=== PATIENT | female | born 1990 | race Caucasian/White ===

== ENCOUNTER 2019-10-13 23:17 | Emergency (ER) | payer MEDICAID, SELFPAY ==
[2019-10-13 23:24] VITALS: BP 112/76; PULSE 79; RESP 18; TEMP 36.8; O2SAT 95; BMI 37.5
--- NOTE | 2019-10-13 23:34 | W.ED.DENTAL ---
HPI - Dental/Oral General: Chief complaint: Dental/Oral Stated complaint: dental pain Time Seen by Provider: 10/13/19 23:31 History of Present Illness: HPI Narrative: Patient is a 29-year-old female comes to the ED with dental pain. Patient says dental pain started approximately 2 to 3 days ago. She is also complaining of having some swelling on the right side of her face as well. Dental pain is the back right maxillary jaw. Location of dental pain is around tooth #2 and 3. Denies any fevers, chills, nausea/vomiting. Patient says she has a dentist that she can see to treat dental pain, but needs to be on an antibiotic first. Denies any shortness of breath or trouble breathing. Associated symptoms: Denies fever(s) or odynophagia Review of Systems Const: Denies: fever(s), chills or fatigue Eyes: Denies: change in vision or eye discomfort ENMT: Reports: dental pain; Denies: throat pain, odynophagia, nasal discharge or nasal congestion Card: Denies: chest pain, palpitations, edema, swelling of feet/ankles, dyspnea on exertion or orthopnea Resp: Denies: dyspnea, productive cough or non-productive cough GI: Denies: abdominal pain, nausea, vomiting, diarrhea, constipation or hematochezia : Denies: flank pain, dysuria or hematuria Musc: Denies: neck pain, back pain or extremity swelling Skin/Breast: Denies: rash or new lesions Neuro: Denies: headache(s), numbness in extremities or weakness in extremities PFS ED PFSH: Social History Smoking and tobacco status: current every day smoker Physical Exam Const: COMMON NORMALS: no acute distress, patient oriented x3 and alert GENERAL APPEARANCE: cooperative HENMT: COMMON NORMALS: normocephalic HEAD & SCALP: normocephalic FACE & SINUS: normal facial exam (No visible facial swelling seen on right side of face.) MOUTH: Normal oral and palatal mucosa present TEETH & GINGIVA: Yes caries (Extensive dental caries, but no severe head around teeth #2 and 3.) and Yes gingiva abnormal (Gingival tenderness and erythema around teeth #2 and 3.) tender THROAT: posterior oropharynx normal and uvula midline Eye: COMMON NORMALS: Equal, round and reactive pupils present PUPIL: Yes Equal, round and reactive pupils present Neck/C-Spine: COMMON NORMALS: supple GENERAL: Yes normal visual inspection Resp: COMMON NORMALS: normal respiratory effort, No retractions, No use of accessory muscles and clear to auscultation bilaterally AUSCULTATION: clear to auscultation bilaterally Cardio: COMMON NORMALS: regular rate, regular rhythm, S1 normal heart sound present, S2 normal heart sound present, No gallops present (Cardio), No clicks present (Cardio), No murmurs present (Cardio) and Peripheral pulses 2+ throughout RATE: regular rate RHYTHM: regular rhythm HEART SOUNDS: S1 normal heart sound present and S2 normal heart sound present PERIPHERAL PULSES: Peripheral pulses 2+ throughout GI: COMMON NORMALS: Normal to inspection, nondistended, normoactive bowel sounds present, Soft to palpation, non-tender and no masses PALPATION: Yes Soft to palpation : COMMON NORMALS: Yes no CVA tenderness BLADDER/KIDNEY EXAM: Yes no CVA tenderness Back/Pelvis: COMMON NORMALS: no CVA tenderness Extremity: COMMON NORMALS: normal to inspection and no pedal edema Neuro: COMMON NORMALS: patient oriented x3 and moves all extremities SENSORIUM/ORIENTATION: Yes alert Skin: COMMON NORMALS: no rashes or lesions noted GENERAL SKIN EXAM: no rashes or lesions noted and dry skin Course Vital Signs: Vital signs: Vital Signs Temperature 98.2 F 10/13/19 23:24 Pulse Rate 80 10/14/19 00:51 Respiratory Rate 18 10/14/19 00:51 Blood Pressure 110/76 10/14/19 00:51 Pulse Oximetry 96 10/14/19 00:51 Discharge Plan Discharge Patient Disposition: Home, Self-Care Clinical Impression: Pain due to dental caries Condition: Stable Prescriptions: New clindamycin HCl 150 mg capsule 300 mg PO QID 7 Days Qty: 56 RF: 0 Discharge Orders: Discharge Order (Routine); Ordered 10/14/19 Ordered By: Zeeshan Cox Discharge Diet: Regular Discharge Activity: Resume usual activity Patient Instructions: Dental Caries (ED) Activity Restrictions/Additional Instructions: Contact your dentist and set up an appointment for evaluation in the next 7 to 10 days. Take full course of antibiotics as prescribed. Take ibuprofen or Tylenol per bottle instructions for pain and or fever. Drink plenty of fluids and stay hydrated. Discharge Date/Time: 10/14/19 00:52 Coding Level of Care Code ED Medical Health Researcher for Chg Fwd Exam Comprehensive
[2019-10-14] MEDS: clindamycin 150 mg Capsule 300 MG PO (00:40)
[2019-10-14] MEDS: HYDROcodone-acetaminophen 7.5-325 mg Tablet 1 TAB PO (00:40)
[2019-10-14 00:51] VITALS: BP 110/76; PULSE 80; RESP 18; O2SAT 96
== END 2019-10-14 00:52 | disposition home or self-care (01) ==
PROVIDERS: Emergency Provider Physician Assistant
DX: K02.9 Dental caries, unspecified (principal); F17.210 Nicotine dependence, cigarettes, uncomplicated
CPT/HCPCS: 12345; 99281; 99283

== ENCOUNTER 2019-10-28 22:53 | Emergency (ER) | payer MEDICAID, SELFPAY ==
--- NOTE | 2019-10-28 22:55 | ECG_ITS ---
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 Measurements Intervals Vevay Rate: 66 P: 44 MA: 243 QRS: 52 QRSD: 102 T: 35 QT: 380 QTc: 399 Interpretive Statements SINUS RHYTHM WITH FIRST DEGREE AV BLOCK No previous ECG available for comparison Electronically Signed On 10-29-2019 7:25:57 CDT by Jose Edmonds M.D. [id number] f
--- NOTE | 2019-10-28 22:55 | XR_ITS ---
WS: [id number] PORTABLE CHEST HISTORY: cp COMPARISON: None available. Lungs are clear and well expanded. No pleural effusion or pneumothorax. Cardiac size: Normal. Mediastinum/Aorta: Normal mediastinum. Mild RIGHT convex curvature drastic spine. XR/XR chest 1V portable [id number] IMPRESSION: Unremarkable portable chest.
[2019-10-28 23:16] VITALS: BP 109/67; PULSE 88; RESP 18; TEMP 36.7; O2SAT 96; BMI 37.5
[2019-10-28 23:18] LABS: Basophils # 0.1 10^3/uL (0.0-0.1); Basophils % 0.5 %; Eosinophils # 0.3 10^3/uL (0.0-0.8); Eosinophils % 2.8 %; Hematocrit 40.5 % (37.0-47.0); Hemoglobin 13.4 g/dL (11.5-15.3); Lymphocytes # 3.1 10^3/uL (0.8-4.8); Lymphocytes % 28.3 %; Mean Corpuscular HGB Conc 33.1 g/dL (30.0-36.0); Mean Corpuscular Hemoglobin 31.9 pg (28.0-34.0); Mean Corpuscular Volume 96.4 fL (81-99); Monocytes # 0.7 10^3/uL (0.2-0.9); Monocytes % 6.6 %; Neutrophils # 6.7 10^3/uL (1.8-7.7); Neutrophils % 61.5 %; Nucleated Red Blood Cells % 0 %; Platelet Count 398 10^3/cmm (130-400); Red Cell Distribution Width 12.8 % (12.1-15.1); White Blood Count 10.9 10^3/uL (4.0-10.0)
[2019-10-28 23:36] LABS: Alanine Aminotransferase 19 U/L (0-33); Albumin Level 4.3 g/dL (3.5-5.2); Alkaline Phosphatase 103 IU/L (35-105); Anion Gap 14.1 (5-19); Blood Urea Nitrogen 15 mg/dL (6-20); Calcium 9.3 mg/dL (8.5-10.5); Carbon Dioxide 26 mmol/L (22-29); Chloride 104 mmol/L (98-107); Glomerular Filtration Rate 146.9 mL/min (90-130); Glucose 101 mg/dL (65-115); Osmolality Calculated 286 mOsm/kg (285-295); Potassium 4.1 mmol/L (3.5-5.1); Sodium 140 mmol/L (136-145); Total Bilirubin 0.9 mg/dL (0.15-1.2); Total Protein 7.3 g/dL (6.6-8.7)
[2019-10-28 23:39] LABS: Troponin(5th) Baseline 6 ng/L (0-10)
--- NOTE | 2019-10-28 23:40 | W.ED.CHESTPA ---
HPI - Chest Pain General: Chief Complaint: Chest Pain Stated Complaint: cp on and off today Time Seen by Provider: 10/28/19 23:33 Source: patient Mode of arrival: ambulatory Limitations: no limitations History of Present Illness: HPI narrative: Patient comes in today with complaints of mid chest pain on and off for the last 2 days. Patient cannot recall anything making the pain better or worse. Patient appears well at this time patient appears in no pain. Patient reports minimal to no pain at this time. complaint: chest pain Review of Systems General: Reports: 10 or more systems reviewed and unremarkable except in HPI and below Card: Reports: chest pain [facility] ED PFSH: Social History Smoking and tobacco status: current every day smoker Female Reproductive History: Date of last menstrual period: 10/06/19 Physical Exam Const: COMMON NORMALS: no acute distress and patient oriented x3 GENERAL APPEARANCE: cooperative HENMT: COMMON NORMALS: normocephalic and Normal external nose present HEAD & SCALP: normal to inspection and normocephalic NOSE: Normal external nose present MOUTH: Normal oral and palatal mucosa present Eye: GENERAL EYE: appearance normal, both eyes and all related structures Neck/C-Spine: COMMON NORMALS: full ROM Chest: COMMONS NORMALS: normal inspection of the chest Resp: COMMON NORMALS: normal respiratory effort EFFORT & INSPECTION: Yes able to speak in complete sentences Cardio: COMMON NORMALS: regular rate and regular rhythm RATE: regular rate RHYTHM: regular rhythm GI: COMMON NORMALS: non-tender Back/Pelvis: COMMON NORMALS: thoracic and lumbar spine normal to inspection Extremity: COMMON NORMALS: normal to inspection Neuro: COMMON NORMALS: patient oriented x3 and moves all extremities Psych: COMMON NORMALS: mental status grossly normal and cooperative Skin: COMMON NORMALS: no rashes or lesions noted GENERAL SKIN EXAM: no rashes or lesions noted Course Vital Signs: Vital signs: Vital Signs Temperature 98.1 F 10/28/19 23:16 Pulse Rate 79 10/28/19 23:44 Respiratory Rate 15 10/28/19 23:44 Blood Pressure 119/77 10/28/19 23:44 Pulse Oximetry 97 10/28/19 23:44 MDM - Chest Pain MDM Narrative: Medical decision making narrative: Patient comes in with some occasional chest pain for the last 2 days. Patient cannot recall what starts the pain worsens the pain. Patient appears well. Patient appears in no acute distress. Palpation of the abdomen and chest wall elicit no pain. Heart rates regular. Skin is warm and dry. No acute distress is noted. Vital signs are normal. Differential diagnosis includes ACS, GERD, costochondritis, pleurisy. EKG was normal sinus rhythm with a first-degree AV block. Vital signs were normal. Laboratory values noted no abnormalities. Troponin was less than 6. Reviewed exam with patient recommended treatment and follow-up with primary care. Patient has a strong family history for coronary artery disease recommended further evaluation with primary care. Patient reported understanding. Lab Data: Labs: Lab Results 10/28/19 10/28/19 10/28/19 Range/Units 23:12 23:12 23:12 WBC 10.9 H (4.0-10.0) 10^3/ uL RBC 4.20 (4.1-5.3) 10^6/u L Hgb 13.4 (11.5-15.3) g/dL Hct 40.5 (37.0-47.0) % MCV 96.4 (81-99) fL MCH 31.9 (28.0-34.0) pg MCHC 33.1 (30.0-36.0) g/dL RDW 12.8 (12.1-15.1) % Plt Count 398 (130-400) 10^3/c mm MPV 11.0 H (7.4-10.4) fL Neut % (Auto) 61.5 % Lymph % (Auto) 28.3 % Mitchell % (Auto) 6.6 % Eos % (Auto) 2.8 % Baso % (Auto) 0.5 % Neut # (Auto) 6.7 (1.8-7.7) 10^3/u L Lymph # (Auto) 3.1 (0.8-4.8) 10^3/u L Mitchell # (Auto) 0.7 (0.2-0.9) 10^3/u L Eos # (Auto) 0.3 (0.0-0.8) 10^3/u L Baso # (Auto) 0.1 (0.0-0.1) 10^3/u L Nucleated RBC % (a uto) 0 % Nucleated RBCs # 0.0 /100WBC Sodium 140 (136-145) mmol/L Potassium 4.1 (3.5-5.1) mmol/L Chloride 104 (98-107) mmol/L Carbon Dioxide 26 (22-29) mmol/L Anion Gap 14.1 (5-19) BUN 15 (6-20) mg/dL Creatinine 0.5 (0.5-0.9) mg/dL GFR Calculation 146.9 H (90-130) mL/min Glucose 101 (65-115) mg/dL Calculated Osmolal ity 286 (285-295) mOsm/k g Calcium 9.3 (8.5-10.5) mg/dL Total Bilirubin 0.9 (0.15-1.2) mg/dL AST 23 (0-32) U/L ALT 19 (0-33) U/L Alkaline Phosphata se 103 (35-105) IU/L Troponin T Baselin e 6 (0-10) ng/L Total Protein 7.3 (6.6-8.7) g/dL Albumin 4.3 (3.5-5.2) g/dL Globulin 3.0 (1.3-4.6) g/dL EKG Data^: EKG 1: Attestation: I personally reviewed and interpreted this EKG as follows: (0001, sinus rhythm with a rate of 66 bpm and regular. No ST elevation. No ectopy. First-degree AV block noted.) Discharge Plan Discharge Patient Disposition: Home, Self-Care Clinical Impression: Atypical chest pain Condition: Stable Discharge Orders: Discharge Order (Routine); Ordered 10/29/19 Ordered By: Cedric Bhagat Discharge Diet: Usual diet Discharge Activity: Increase activity as tolerated Patient Instructions: Chest Pain (ED) Activity Restrictions/Additional Instructions: Home and rest. Healthy diet and exercise. Stop smoking. Follow-up with primary care in 1 week. Return to the ER for worsening symptoms or new concerns. Coding Level of Care Code ED Ladle Operator for Dipeshg Fwd Exam Comprehensive
[2019-10-28 23:44] VITALS: BP 119/77; PULSE 79; RESP 15; O2SAT 97
[2019-10-28 23:57] LABS: Aspartate Amino Transferase 23 U/L (0-32)
[2019-10-29 00:35] VITALS: BP 110/65; PULSE 73; RESP 16; O2SAT 98
[2019-10-29 00:40] VITALS: BP 102/53; PULSE 69; RESP 16; O2SAT 97
== END 2019-10-29 00:43 | disposition home or self-care (01) ==
PROVIDERS: Emergency Medicine; Emergency Provider Nurse Practitioner Family
DX: R07.89 Other chest pain (principal); F17.210 Nicotine dependence, cigarettes, uncomplicated
CPT/HCPCS: 12345; 71045; 80053; 84484; 85025; 93005; 99281; 99283

== ENCOUNTER 2020-09-28 20:04 | Emergency (ER) | payer MEDICAID, SELFPAY ==
[2020-09-28 20:29] VITALS: BP 131/77; PULSE 83; RESP 15; TEMP 36.8; O2SAT 97; BMI 34.0
--- NOTE | 2020-09-28 20:49 | W.ED.DENTAL ---
HPI - Dental/Oral General: Chief complaint: Dental/Oral Stated complaint: R side tooth pain, DURBIN, Time Seen by Provider: 09/28/20 20:44 Source: patient Mode of arrival: ambulatory Limitations: no limitations History of Present Illness: HPI Narrative: 30-year-old female states she been having right lower dental pain since morning. States pain is very sharp in nature and rates an 8 out of 10. She has been unable to see dentist today. She denies any difficulty swallowing. Denies any difficulty breathing. Denies any fevers. Associated symptoms: Denies fever(s) Review of Systems Const: Denies: fever(s), chills, body aches or change in appetite Eyes: Denies: blurry vision or eye discomfort ENMT: Reports: mouth pain Card: Denies: chest pain Resp: Denies: dyspnea GI: Denies: abdominal pain, nausea, vomiting or diarrhea : Denies: dysuria Musc: Denies: neck pain or back pain Skin/Breast: Denies: rash Neuro: Denies: headache(s) Psych: Denies: depression Mason/Lymph: Denies: easy bruising All/Imm: Denies: urticaria PFSH ED PFSH: Social History Smoking and tobacco status: current every day smoker Female Reproductive History: Date of last menstrual period: 10/06/19 Physical Exam Const: COMMON NORMALS: no acute distress, patient oriented x3 and healthy appearing HENMT: COMMON NORMALS: normocephalic and atraumatic HEAD & SCALP: normocephalic and atraumatic OTHER: Poor dentition with cavity to right lower molar and tenderness over right lower molar no abscess or trismus Eye: COMMON NORMALS: Equal, round and reactive pupils present and EOMs intact bilaterally PUPIL: Yes Equal, round and reactive pupils present Neck/C-Spine: COMMON NORMALS: full ROM and supple Chest: COMMONS NORMALS: normal inspection of the chest and normal palpation of entire chest wall Resp: COMMON NORMALS: normal respiratory effort, No retractions, No use of accessory muscles and clear to auscultation bilaterally AUSCULTATION: clear to auscultation bilaterally Cardio: COMMON NORMALS: regular rate, regular rhythm and No murmurs present (Cardio) RATE: regular rate RHYTHM: regular rhythm GI: COMMON NORMALS: Normal to inspection, nondistended, normoactive bowel sounds present, Soft to palpation, non-tender and no masses PALPATION: Yes Soft to palpation Extremity: COMMON NORMALS: normal to inspection and full ROM Neuro: COMMON NORMALS: patient oriented x3, moves all extremities and no focal motor deficits Psych: COMMON NORMALS: mental status grossly normal, Normal thought process present and cooperative THOUGHT PROCESS: Normal thought process present Skin: COMMON NORMALS: no rashes or lesions noted and no wounds GENERAL SKIN EXAM: no rashes or lesions noted Course Vital Signs: Vital signs: Vital Signs Temperature 98.2 F 09/28/20 20:29 Pulse Rate 83 09/28/20 20:29 Respiratory Rate 15 09/28/20 20:29 Blood Pressure 131/77 09/28/20 20:29 Pulse Oximetry 97 09/28/20 20:29 MDM - Dental/Oral MDM Narrative: Medical decision making narrative: Patient presents here with dental pain. We will place her on insulin and she is to follow-up with her PCP. She understands and agrees to plan. Discharge Plan Discharge Patient Disposition: Home Clinical Impression: Toothache Condition: Stable Prescriptions: New Naprosyn 500 mg tablet 500 mg PO BID PRN (Reason: pain) Qty: 20 RF: 0 penicillin V potassium 500 mg tablet 500 mg PO Q6H Qty: 28 RF: 0 Discharge Orders: Discharge ED (Routine); Ordered 09/28/20 Ordered By: Melody Mckenzie Discharge Diet: Advance as tolerated Discharge Activity: Resume usual activity Patient Instructions: Dental Caries (ED), Toothache (ED) Coding Level of Care Code ED Postmaster for Buzz Li
[2020-09-28] MEDS: HYDROcodone-acetaminophen 7.5-325 mg Tablet 1 TAB PO (21:25)
[2020-09-28 21:29] VITALS: BP 131/77; PULSE 83; RESP 16
== END 2020-09-28 21:10 | disposition home or self-care (01) ==
PROVIDERS: Emergency Provider Emergency Medicine
DX: K08.89 Other specified disorders of teeth and supporting structures (principal); F17.210 Nicotine dependence, cigarettes, uncomplicated
CPT/HCPCS: 99282